=== PATIENT | male | born 1950 | race Caucasian/White ===

== ENCOUNTER → 2020-06-29 | Outpatient (CLI) | payer MEDICARE, OTHER ==
[~2020-06-29] MED LIST: REGADENOSON 0.4 MG/5 ML DISP.SYRIN. IV ONE
--- NOTE | 2020-06-29 15:43 | RAD ---
MR#: [id number] Date of Study: 06/29/2020 Ordering Physician: CATRACHO GONZALES, Referring Physician: KASEY FORDE Tech: RT Adelso Gottlieb) (N) APPROVED REPORT Test Type: Pharmacological Stress Nurse/Tech: ROSEANNA HADDAD Test Indications: CAD, CHEST PAIN Cardiac History: HTN, CAD, STENTS- 18 YEARS AGO, SEE EMR Medications: SEE EMR Medical History: SEE EMR Resting ECG: SR Resting Heart Rate: 82 bpm Resting Blood Pressure: 112/59mmHg Pretest Chest Pain: No chest pain Nurse/Tech Notes S1,S2, LUNGS CTA, DENIED CP OR SOA AT THIS TIME. VSS. Consent: The procedure was explained to the patient in lay terms. Informed consent was witnessed. Woody eout was entered into [employer]. History and Stress Test performed by RT Adelso Gottlieb) (N) Pharm. Details Pharmacologic stress testing was performed using 0.4mg per 5ml of regadenoson given intravenously ove r 7-10 seconds. Stress Symptoms PT C/O OF SLIGHT SOA AND LEFT SIDED CHEST PRESSURE BRIEFLY, SYMPTOMS RESOLVED WITHIN A COUPLE MINUTES . VSS. POST EXERCISE Reason for Termination: Infusion complete Max HR: 93 bpm Max Blood Pressure: 133/65mmHg Blood Pressure response to exercise: Normal blood pressure response during stress. Heart Rate response to exercise: NORMAL HEART RATE RESPONSE DURING STRESS. Chest Pain: . BRIEFLY- LEFT SIDE Arrhythmia: No. ST Change: No. NO SIGNIFICANT CHANGES FROM BASELINE EKG. INTERPRETATION Stress EKG Conclusion: Baseline EKG showed sinus rhythm. No ischemic changes at peak stress. Few PV Cs without any significant arrhythmias. Imaging Protocol IMAGE PROTOCOL: Rest Tc-99m/stress Tc-99m 1 day Rest: Stress: Viability: Radiopharm.Tc99m QuobtzrirWn89g Sestamibi Dose10.9mCi 31.6mCi Duration 13min. 13min. Img Date 06/29/2020 06/29/2020 Inj-Img Zety10wyt. 60min. Rest Admin Site:IV - Left AntecubitalAdministrator:Angelica Kang, RT (R)(N) Stress Admin Site: IV - Left AntecubitalAdministrator: RT Chery (R)(N) STRESS DATA End Diast. Vol.102.0mlLVEDV index BSA51.0ml End Syst. Vol.50.0mlLVESV index BSA25.0ml Myocardial Hgwu309.0gEject. Nvyydqtj65.0% Stress Scores Regional WT2.00Summed WT21.00 Regional WM0.00Summed WM13.00 LV Perfusion Scintigraphic images showed a large predominantly fixed defect involving the inferior, inferolateral and lateral trejo consistent with previous myocardial infarction with small amount of reversibility c onsistent with beatriz-infarct ischemia. Wall Motion Base to mid inferior and posterior wall hypokinesis with ejection fraction calculated at 51%. LV Perf. Quant 17 Seg. SSS18.00 17 Seg. SRS16.00 17 Seg. SDS4.00 Stress Defect Extent (% LAD)0.00Rest Defect Extent (% LAD)0.00Rev. Defect Extent (% LAD)0.00 Stress Defect Extent (% LCX) 86.30Rest Defect Extent (% LCX)67.50Rev. Defect Extent (% LCX)62.50 Stress Defect Extent (% RCA)37.80Rest Defect Extent (% RCA)41.10Rev. Defect Extent (% RCA)0.00 Stress Defect Extent (% KENNY)29.10Rest Defect Extent (% KENNY)25.00Rev. Defect Extent (% KENNY)12.60 Conclusion 1. Regadenoson cardioisotope stress test showed large infarct involving the inferior, inferolateral a nd lateral trejo with small amount of beatriz-infarct ischemia 2. Base to mid inferior and posterior wall hypokinesis with ejection fraction calculated at 51%. 3. Low to intermediate risk for cardiac events. Signed by : Fransisco Swartz, Electronically Approved : 06/29/2020 15:43:25
== END ==
LOC: NM 09:42
PROVIDERS: ATTEND Internal Medicine Cardiovascular Disease
DX: I25.10 Atherosclerotic heart disease of native coronary artery without angina pectoris (principal); I10 Essential (primary) hypertension; Z95.5 Presence of coronary angioplasty implant and graft
CPT/HCPCS: 78452; 93017; A9500; J2785